=== PATIENT | female | born 1970 | race Caucasian/White ===

== ENCOUNTER 2017-03-18 22:31 | Emergency (ER) | payer BC ==
[~2017-03-18] VITALS: Ht 177.8 cm; Wt 168.2 kg
[2017-03-18 22:59] LABS: HEMATOCRIT 40.4 % (36.0-46.0); MCH 27.4 PG (29.0-34.0); MCHC 31.9 G/DL (30.0-36.0); MEAN PLAT.VOLUME 11.2 uM^3 (9.5-12.4); PLATELET COUNT 229 K/uL (156-360); RBC DIS.WIDTH-CV 13.6 % (11.8-14.6); RBC DIS.WIDTH-SD 42.5 % (39-53); WHITE BLOOD COUNT 9.8 K/uL (4.1-10.2)
[2017-03-18 23:10] LABS: CHLORIDE 101 mEq/L (99-109); POTASSIUM 3.7 mEq/L (3.7-5.4); SODIUM 137 mEq/L (136-147)
[2017-03-18 23:12] LABS: GLUCOSE 121 mg/dL (70-99)
[2017-03-18 23:14] LABS: ANION GAP 11 MEQ/L (2-14)
[2017-03-18 23:16] LABS: GFR ESTIMATE (CALCULATED) 52 mL/min/
[2017-03-18 23:17] LABS: UREA NITROGEN (BUN) 13 mg/dL (9-23)
[2017-03-18 23:30] LABS: TROP-I INTERPRETATION NEGATIVE; TROPONIN-I < 0.01 ng/mL (0.0-0.30)
[2017-03-19 01:45] LABS: TROP-I INTERPRETATION NEGATIVE; TROPONIN-I < 0.01 ng/mL (0.0-0.30)
[2017-03-19 03:00] VITALS: BP 120/66
== END 2017-03-19 03:00 | disposition home or self-care (01) ==
LOC: EME 22:31
PROVIDERS: Emergency Medicine
DX: R07.89 Other chest pain (principal); R60.1 Generalized edema; I10 Essential (primary) hypertension
CPT/HCPCS: 71020; 71275; 80048; 84484; 85027; 85379; 93005; 93970; 99281; 99285